=== PATIENT | male | born 1985 | race Two or more races ===

== ENCOUNTER 2023-10-30 19:54 | Emergency (ER) | payer MEDICAID, OTHER ==
[~2023-10-30] VITALS: Ht 165.1 cm; Wt 83.5 kg
[~2023-10-30 19:54] MED LIST: CYCL-839 PO; IBUP-1455 PO
[2023-10-30 20:05] VITALS: BP 152/93; PULSE 72; RESP 19; O2SAT 99
== END 2023-10-30 22:26 | disposition home or self-care (01) ==
LOC: ER 19:54
DX: S39.012A Strain of muscle, fascia and tendon of lower back, initial encounter (principal); Z79.899 Other long term (current) drug therapy; V89.2XXA Person injured in unspecified motor-vehicle accident, traffic, initial encounter; Y93.89 Activity, other specified; Y92.89 Other specified places as the place of occurrence of the external cause; Y99.8 Other external cause status

== ENCOUNTER 2024-11-21 00:59 | Emergency (ER) | payer MEDICAID ==
[~2024-11-21] VITALS: Ht 167.6 cm; Wt 83.1 kg
[2024-11-21 01:06] VITALS: BP 153/97; PULSE 99; RESP 16; O2SAT 95
[2024-11-21] MEDS: ACETAMINOPHEN 325 MG TAB PO ONE (01:15)
[2024-11-21] MEDS ORDERED: PRED20TA2 PO (01:46)
[2024-11-21] MEDS ORDERED: ACET500T58 PO (01:46)
[2024-11-21] MEDS ORDERED: ERY05OO OP (01:46)
[2024-11-21] MEDS ORDERED: AMOX875T4 PO (01:46)
--- NOTE | 2024-11-21 01:46 | ED.PDOC ---
History of Present Illness HPI Comments 39-year-old male presents to ER with complaints of flu-like symptoms x2 days. Patient reports that he has been experiencing productive cough with yellow phlegm, congestion, sore throat, fever, frontal headache, intermittent bloody noses and yellow drainage to bilateral eyes x two days. He rates his current sore throat and frontal headache pain a 6/10. Reports that he last took ibuprofen 4 hours prior to arrival to ER. Patient presents to ER febrile on arrival at 100.0 F, ambulatory, with steady gait, in no distress. Denies shortness of breath, chest pain, hemoptysis, dizziness, nausea/vomiting, known exposure to sick contacts or any further symptoms/complaints Chief Complaint: Flu like Time Seen by MD: 01:03 Primary Care Provider: SULY Hernandez Notes: Nurses Notes, Medications, Allergies Information Source: Patient Mode of Arrival: Ambulatory Past Medical History PAST MEDICAL HISTORY: Denies Surgical History: Denies all surgeries Family History Family History: Unknown Social History Smoker: Non-Smoker Alcohol: Denies ETOH Use Drugs: Denies Drug Use Lives In: Home Constitutional: See HPI EENTM: See HPI Respiratory: See HPI Cardiovascular: No Symptoms Reported Gastrointestinal: No Symptoms Reported Genitourinary: No Symptoms Reported Neurological: See HPI Musculoskeletal: No Symptoms Reported Integumentary: No Symptoms Reported Allergic/Immunocompromised: others (UNKNOWN) Hematologic/Lymphatic: No Symptoms Reported Endocrine: No Symptoms Reported Psychiatric: No symptoms Reported Physical Exam General Appearance: No Apparent Distress HEENT: PERRL/EOMI (MILD SUBCONJUNCTIVAL INJECTION AND MINIMAL YELLOW DRAINAGE NOTED TO BILATERAL EYES, NO SKIN CHANGES TO BILATERAL EYES NOTED), Pharynx Normal, TMs Normal Neck: Full Range of Motion, Non-Tender, Normal Respiratory: Chest Non-Tender, Lungs Clear, No Accessory Muscle Use, No Respiratory Distress, Normal Breath Sounds Cardiovascular: No Murmur, No Gallop, Regular Rate/Rhythm Breast Exam: Deferred Gastrointestinal: NOT DONE Genitalia: Deferred Pelvic: Deferred Rectal: Deferred Extremities: Normal capillary refill, Normal range of motion Neurologic: Alert, company [employer] blasting II-XII nml as Tested, No Motor Deficits, Normal Affect, Normal Mood, No Sensory Deficits Cerebellar Function: Normal Reflexes: Normal Skin: Dry, Normal Color, Warm Lymphatic: No Adenopathy Was a procedure done? Was a procedure done?: No Sedation Sedation?: No Fever Differential Dx Differential Diagnosis: Pneumonia, Sepsis, Pharyngitis, Other (COVID-19, INFLUENZA) X-Ray, Labs, Meds, VS Vital Signs Date Time Temp Pulse Resp B/P (MAP) Pulse Ox O2 Delivery O2 Flow Rate FiO2 11/21/24 01:54 98.5 11/21/24 01:54 98.5 98.5 11/21/24 01:15 100.0 11/21/24 01:06 Room Air 11/21/24 01:06 100.0 99 16 153/97 (115) 95 100.0 11/21/24 01:06 95 Room Air* 0 21 11/21/24 01:06 100.0 99 16 158/97 (117) 95 100.0 Lab Test 11/21/24 01:10 Range/Units Influenza Type A Antigen Negative Negative Influenza Type B Antigen Negative Negative SARS-CoV-2 Antigen (Rapid) Negative NEGATIVE Current Medications Medications (Trade) Dose Ordered Sig/Bharathi Route Start Time Stop Time Status Last Admin Acetaminophen (Tylenol Tablet) 650 mg ONCE ONCE PO 11/21/24 01:15 11/21/24 01:16 DC 11/21/24 01:15 Swab results reviewed- negative Tylenol 650 mg p.o. ordered Patient in no distress during ER visit/prior to discharge Advised to drink plenty of fluids Advised to follow up with PCP in 1-2 days Patient verbalized understanding and agreeable with current plan of care Advised to return to ER immediately if symptoms worsen Time of 1ST Reevaluation: 01:20 Reevaluation 1ST: N/A Patient Education/Counseling: Diagnosis, Treatment, Prognosis, Need For Follow Up Family Education/Counseling: No Family Present Departure 1 Departure Time of Disposition: 01:42 Impression: Primary Impression: Upper respiratory infection Qualified Codes: J06.9 - Acute upper respiratory infection, unspecified Additional Impression: Bacterial conjunctivitis of both eyes Disposition: HOME / SELF CARE / HOMELESS Condition: Stable e-Prescriptions Azithromycin (Azithromycin) 250 Mg Tab 250 MG PO DAILY MDD 500 for 5 Days, #6 TAB 0 Refills 2 TABLETS ORALLY ON DAY ONE, THEN 1 TABLET ORALLY DAILY FOR 4 DAYS Prov: LIZETH FLOREZ 11/21/24 Erythromycin (Erythromycin) 5 Mg/Gm Oin 1 MG OP 6XD for 7 Days, #1 OIN 1 Refill Prov: LIZETH FLOREZ 11/21/24 Prednisone (Prednisone) 20 Mg Tab 20 MG PO BID for 5 Days, #10 TAB 0 Refills Prov: LIZETH FLOREZ 11/21/24 Acetaminophen (Acetaminophen) 500 Mg Tab 500 MG PO Q4HPRN, #30 TAB 0 Refills Prov: LIZETH FLOREZ 11/21/24 Discharged With: Self Critical Care Note Critical Care Time?: No Stability Stability form required: No Heart Score Heart Score: Heart Score Response (Comments) Value History N/A 0 EKG N/A 0 Age N/A 0 Risk Factors N/A 0 Troponin N/A 0 Total 0 LIZETH FLOREZ Nov 21, 2024 01:46
[2024-11-21] MEDS ORDERED: AZIT-43 PO (01:50)
[2024-11-21 01:54] VITALS: TEMP 98.5
[2024-11-21 01:59] LABS: COVID19 ANTIGEN SOFIA FIA NEGATIVE (NEGATIVE); Rapid Influenza A Negative (Negative); Rapid Influenza B Negative (Negative)
== END 2024-11-21 02:18 | disposition home or self-care (01) ==
LOC: ER 00:59
DX: J06.9 Acute upper respiratory infection, unspecified (principal); H10.89 Other conjunctivitis; Z20.822 Contact with and (suspected) exposure to COVID-19
CPT/HCPCS: 36415; 87426; 87804